=== PATIENT | male | born 1955 | race Caucasian/White ===

== ENCOUNTER 2021-01-20 10:22 | Outpatient (CLI) | payer BC | END 2021-01-20 10:23 | disposition home or self-care (01) | LOC: TBSIIMAG 10:22 | PROVIDERS: ATTEND Neurological Surgery | DX: M21.379 Foot drop, unspecified foot (principal); R26.1 Paralytic gait; M47.814 Spondylosis without myelopathy or radiculopathy, thoracic region | CPT/HCPCS: 72146 ==

== ENCOUNTER 2021-01-25 09:27 | Outpatient (CLI) | payer BC | END 2021-01-25 09:28 | disposition home or self-care (01) | LOC: TBSIIMAG 09:27 | PROVIDERS: ATTEND Neurological Surgery | DX: R27.0 Ataxia, unspecified (principal) | CPT/HCPCS: 70450 ==

== ENCOUNTER 2021-01-25 14:24 | Outpatient (CLI) | payer BC ==
[2021-01-25 15:46] LABS: Hemoglobin 13.6 g/dL (13.5-17.5); Mean Corpuscular HGB CONC 33.1 g/dL (32.0-36.0); Mean Corpuscular Hemoglobin 28.9 pg (27.0-33.0); Mean Corpuscular Volume 87.3 fl (81.2-95.1); Mean Platelet Volume 10.1 fl (7.4-10.4); Platelet Count 323 10x3/uL (150-450); RBC Distribution Width 12.9 % (11.5-14.5); Red Blood Cell (RBC) Count 4.71 10x6/uL (4.32-5.72); White Blood Cell (WBC) Count 10.6 10x3/uL (3.5-10.5)
[2021-01-25 16:02] LABS: Anion Gap 15 mmol/L (10-20); BUN (Urea Nitrogen) 16 mg/dL (8.4-25.7); Calc. Creatinine Clearance 0 mL/min (70-130); Calcium 9.3 mg/dL (7.8-10.44); Carbon Dioxide 26 mmol/L (23-31); Chloride 103 mmol/L (98-107); Glucose 111 mg/dL (80-115); Potassium 4.4 mmol/L (3.5-5.1); Sodium 140 mmol/L (136-145)
[2021-01-26 01:55] LABS: SARS-CoV-2 PCR by NAA Not Detected (NotDetected)
== END 2021-01-25 14:25 | disposition home or self-care (01) ==
LOC: LABBT 14:24
PROVIDERS: ATTEND Neurological Surgery
DX: Z01.818 Encounter for other preprocedural examination (principal); M48.061 Spinal stenosis, lumbar region without neurogenic claudication; Z20.822 Contact with and (suspected) exposure to COVID-19
CPT/HCPCS: 80048; 85027; 87635; 93005; 93010; U0003; U0005

== ENCOUNTER 2021-01-31 06:50 | Day surgery (SDC) | payer BC ==
[2021-01-27 11:28] VITALS: BMI 28.1
[2021-01-31] MEDS ORDERED: HYDROmorphone 0.5 MG/0.5 ML SYRINGE ONE (06:58)
[2021-01-31] MEDS ORDERED: Fentanyl 100 MCG/2 ML VIAL ONE ×3 (06:58→10:41)
[2021-01-31] MEDS ORDERED: Thrombin 5000 UNITS/5 ML VIAL ONE (08:23)
[2021-01-31] MEDS ORDERED: Bupivacaine 0.25% HCL 30 ML VIAL ONE (08:23)
[2021-01-31] MEDS ORDERED: Bupivacaine PF 0.5% 30 ML VIAL ONE (08:23)
[2021-01-31] MEDS ORDERED: Dexamethasone 20 MG/5 ML VIAL ONE (08:50)
[2021-01-31] MEDS ORDERED: PROPOFOL 200 MG/20 ML VIAL ONE (08:50)
[2021-01-31] MEDS ORDERED: Lidocaine 1% PF 5 ML VIAL ONE (08:50)
[2021-01-31] MEDS ORDERED: Rocuronium Bromide 10 MG/ML (10ML VIAL) ONE (08:50)
[2021-01-31] MEDS ORDERED: PHENYLEPHRINE-NS 100 MCG/ML 10 ML SYRINGE ONE (08:50)
[2021-01-31] MEDS ORDERED: ePHEDrine Sulfate 50 MG/10 ML VIAL ONE (08:50)
[2021-01-31] MEDS ORDERED: Glycopyrrolate 0.2 MG/ML 5 ML SYRINGE ONE (08:50)
[2021-01-31] MEDS ORDERED: Tamsulosin HCl 0.4 MG CAP ONE (11:12)
[2021-01-31] MEDS ORDERED: HYDROcodone/Acetaminophen 5/325 mg Tablet ONE ×2 (12:46→20:22)
[2021-01-31] MEDS ORDERED: Ondansetron ODT 4 MG TAB ONE (13:32)
[2021-01-31] MEDS ORDERED: Ondansetron PF 4 MG/2 ML Vial ONE (15:47)
[2021-01-31] MEDS ORDERED: Cyclobenzaprine 10 MG TAB ONE (16:45)
== END 2021-01-31 21:11 | disposition home or self-care (01) ==
LOC: SDC 06:50
PROVIDERS: ATTEND Neurological Surgery
PROC: 01NB0ZZ Release Lumbar Nerve, Open Approach (ICD-10-PCS; principal; 2021-01-31)
DX: M48.062 Spinal stenosis, lumbar region with neurogenic claudication (principal); M51.26 Other intervertebral disc displacement, lumbar region; I10 Essential (primary) hypertension; I25.10 Atherosclerotic heart disease of native coronary artery without angina pectoris; K21.9 Gastro-esophageal reflux disease without esophagitis; J30.2 Other seasonal allergic rhinitis; Z79.02 Long term (current) use of antithrombotics/antiplatelets; Z79.82 Long term (current) use of aspirin; Z79.899 Other long term (current) drug therapy; Z91.041 Radiographic dye allergy status; Z95.5 Presence of coronary angioplasty implant and graft
CPT/HCPCS: 76000; J0690; J1100; J1170; J2405; J2704; J3010; Q0162; S0020

== ENCOUNTER 2023-08-15 09:06 | Outpatient (CLI) | payer MEDICARE ==
[2023-08-15 11:04] LABS: Hematocrit 40.8 % (38.8-50.0); Hemoglobin 13.6 g/dL (13.5-17.5); Mean Corpuscular HGB CONC 33.3 g/dL (32.0-36.0); Mean Corpuscular Hemoglobin 28.3 pg (27.0-33.0); Mean Corpuscular Volume 84.8 fl (81.2-95.1); Platelet Count 284 10x3/uL (150-450); RBC Distribution Width 12.8 % (11.5-14.5); Red Blood Cell (RBC) Count 4.81 10x6/uL (4.32-5.72); White Blood Cell (WBC) Count 5.6 10x3/uL (3.5-10.5)
[2023-08-15 11:44] LABS: Anion Gap 14 mmol/L (10-20); BUN (Urea Nitrogen) 10 mg/dL (8.4-25.7); Calc. Creatinine Clearance 0 mL/min (70-130); Calcium 9.1 mg/dL (7.8-10.44); Carbon Dioxide 24 mmol/L (23-31); Chloride 104 mmol/L (98-107); Estimated GFR 96; Glucose 87 mg/dL (80-115); Potassium 4.3 mmol/L (3.5-5.1); Sodium 138 mmol/L (136-145)
== END 2023-08-15 09:07 | disposition home or self-care (01) ==
LOC: LABBT 09:06
PROVIDERS: ATTEND Neurological Surgery
DX: Z01.818 Encounter for other preprocedural examination (principal); M51.26 Other intervertebral disc displacement, lumbar region
CPT/HCPCS: 80048; 85027; 93005; 93010

== ENCOUNTER 2023-08-20 05:31 | Day surgery (SDC) | payer MEDICARE ==
[2023-08-15 10:05] VITALS: BMI 29.0
[2023-08-20] MEDS ORDERED: EPINEPHrine 1 MG/ML VIAL ONE (06:10)
[2023-08-20] MEDS ORDERED: Thrombin 5000 UNITS/5 ML VIAL ONE (06:10)
[2023-08-20] MEDS ORDERED: Bupivacaine PF 0.5% 30 ML VIAL ONE (06:10)
[2023-08-20] MEDS ORDERED: fentaNYL PF 100 MCG/2 ML SYRINGE ONE (06:37)
[2023-08-20] MEDS ORDERED: CEFAZOLIN 2 GM VIAL ONE ×2 (06:45→11:53)
[2023-08-20] MEDS ORDERED: Sodium Chloride 0.9% 100 ML ONE ×2 (06:45→11:53)
[2023-08-20] MEDS ORDERED: Lidocaine 1% PF 5 ML VIAL ONE (07:09)
[2023-08-20] MEDS ORDERED: PROPOFOL 200 MG/20 ML VIAL ONE (07:09)
[2023-08-20] MEDS ORDERED: Dexamethasone 20 MG/5 ML VIAL ONE (07:09)
[2023-08-20] MEDS ORDERED: Rocuronium Bromide 10 MG/ML (10ML VIAL) ONE (07:09)
[2023-08-20] MEDS ORDERED: Ondansetron PF 4 MG/2 ML Vial ONE ×3 (07:09→10:00)
[2023-08-20] MEDS ORDERED: PHENYLEPHRINE-NS 100 MCG/ML 10 ML SYRINGE ONE (07:09)
[2023-08-20] MEDS ORDERED: Glycopyrrolate 0.2 MG/ML 5 ML SYRINGE ONE (07:09)
[2023-08-20] MEDS ORDERED: Albuterol HFA (OR) 200 PUFF INH ONE (07:09)
[2023-08-20] MEDS ORDERED: fentaNYL 50 mcg/mL 1 mL Vial ONE (07:32)
[2023-08-20] MEDS ORDERED: SUGAMMADEX SODIUM 200 MG/2 ML VIAL ONE (08:32)
[2023-08-20] MEDS ORDERED: HYDROmorphone 2 MG/ML VIAL ONE (08:51)
[2023-08-20] MEDS ORDERED: Tamsulosin HCl 0.4 MG CAP ONE (09:02)
[2023-08-20] MEDS ORDERED: Promethazine 25 MG TAB ONE (10:30)
[2023-08-20] MEDS ORDERED: Metoclopramide HCl 10 MG/2 ML VIAL ONE (10:47)
[2023-08-20] MEDS ORDERED: Famotidine/PF 20 mg/2ml Vial ONE (11:22)
[2023-08-20] MEDS ORDERED: Promethazine HCl 25 MG SUPP PR SCH (11:30)
== END 2023-08-20 13:30 | disposition home or self-care (01) ==
LOC: SDC 05:31
PROVIDERS: ATTEND Neurological Surgery
PROC: 0SB20ZZ Excision of Lumbar Vertebral Disc, Open Approach (ICD-10-PCS; principal; 2023-08-20)
DX: M51.16 Intervertebral disc disorders with radiculopathy, lumbar region (principal); G89.29 Other chronic pain; Z90.49 Acquired absence of other specified parts of digestive tract; Z95.5 Presence of coronary angioplasty implant and graft; Z87.891 Personal history of nicotine dependence; Z79.82 Long term (current) use of aspirin; Z79.899 Other long term (current) drug therapy; Z91.041 Radiographic dye allergy status
CPT/HCPCS: 63030; C1713; J0171; J3010; J1100; J1170; J2405; J2704; J2765; J3490; Q0169; S0020; S0028